=== PATIENT | male | born 1975 | race Caucasian/White ===

== ENCOUNTER 2018-07-02 18:30 | Emergency (ER) | payer BC ==
[~2018-07-02] VITALS: Ht 182.9 cm; Wt 126.1 kg
[~2018-07-02 18:30] MED LIST: ASPI81EC PO; ATEN50 PO; Budeprion Sr150 MG; CEPH500 PO; CLIN300 PO; CRUTCH3 USE; CYCL10 PO; Esgic Tablet1 EACH PO; IBUHYD PO; METCAR500 PO; METO25ER PO; METO50 PO; METPRE4DP PO; PARO10 PO; SULTRISS PO
[2018-07-02 20:08] LABS: Influenza A Negative (NEGATIVE); Influenza B Negative (NEGATIVE)
[2018-07-02] MEDS ORDERED: Prednisone20 MG PO (20:16)
== END 2018-07-02 20:24 | disposition home or self-care (01) ==
LOC: ER 18:30
PROVIDERS: Physician Assistant
DX: J20.9 Acute bronchitis, unspecified (principal); Z88.1 Allergy status to other antibiotic agents; Z88.8 Allergy status to other drugs, medicaments and biological substances; F17.210 Nicotine dependence, cigarettes, uncomplicated
CPT/HCPCS: 71046; 87804; 94640; 99283-25

== ENCOUNTER 2019-02-18 19:17 | Emergency (ER) | payer BC ==
[~2019-02-18] VITALS: Ht 182.9 cm; Wt 125.2 kg
[~2019-02-18 19:17] MED LIST changes: +Prednisone20 MG PO
[2019-02-18] MEDS ORDERED: Prednisone20 MG PO (20:19)
== END 2019-02-18 20:27 | disposition home or self-care (01) ==
LOC: ER 19:17
DX: J40 Bronchitis, not specified as acute or chronic (principal); F17.210 Nicotine dependence, cigarettes, uncomplicated; Z88.8 Allergy status to other drugs, medicaments and biological substances; Z88.1 Allergy status to other antibiotic agents
CPT/HCPCS: 94640; 99283-25; J7512

== ENCOUNTER 2019-06-21 20:27 | Emergency (ER) | payer BC ==
[~2019-06-21] VITALS: Ht 182.9 cm; Wt 123.8 kg
[2019-06-22] MEDS ORDERED: ALBU90OI INH (00:04)
[2019-06-22] MEDS ORDERED: Prednisone20 MG PO (00:04)
== END 2019-06-22 00:30 | disposition home or self-care (01) ==
LOC: ER 20:27
DX: J40 Bronchitis, not specified as acute or chronic (principal); F17.210 Nicotine dependence, cigarettes, uncomplicated; I48.91 Unspecified atrial fibrillation
CPT/HCPCS: 71046; 99283-25; J7512

== ENCOUNTER 2022-08-23 20:15 | Emergency (ER) | payer OTHER ==
[~2022-08-23] VITALS: Ht 182.9 cm; Wt 129.3 kg
[~2022-08-23 20:15] MED LIST changes: +ALBU90OI INH
[2022-08-23 21:16] LABS: BASOPHILS ABSOLUTE AUTO 0.07 K/mm3 (0.00-0.23); BASOPHILS PERCENT AUTO 1 % (0-2); EOSINOPHILS ABSOLUTE AUTO 0.14 K/mm3 (0.00-0.68); EOSINOPHILS PERCENT AUTO 1 % (0-6); Hematocrit 42.6 % (37.0-53.0); Hemoglobin 14.7 g/dL (13.5-17.5); IMMATURE GRAN ABSOLUTE AUTO 0.02 K/mm3 (0.00-0.10); IMMATURE GRAN PERCENT AUTO 0 % (0-1); LYMPHOCYTES ABSOLUTE AUTO 3.34 K/mm3 (0.84-5.20); LYMPHOCYTES PERCENT AUTO 34 % (21-46); MONOCYTES ABSOLUTE AUTO 0.51 K/mm3 (0.16-1.47); MONOCYTES PERCENT AUTO 5 % (4-13); Mean Corpuscular HGB 29.5 pg (26.0-34.0); Mean Corpuscular HGB Conc 34.5 g/dL (31.5-36.5); Mean Corpuscular Volume 85 fL (80-100); Mean Platelet Volume 8.2 fL (9.1-12.4); NEUTROPHILS ABSOLUTE AUTO 5.86 K/mm3 (1.96-9.15); NEUTROPHILS PERCENT AUTO 59 % (41-73); Platelet Count 340 K/mm3 (150-400); RDW Coefficient Variation 11.9 % (11.7-14.2); RDW Standard Deviation 37.3 fL (35.1-46.3); Red Blood Cell Count 4.99 M/mm3 (4.30-5.90); White Blood Cell Count 9.94 K/mm3 (4.00-11.30)
[2022-08-23 21:40] LABS: Influenza A, PCR NEGATIVE (NEGATIVE); Influenza B, PCR NEGATIVE (NEGATIVE); Resp Syncytial Virus, PCR NEGATIVE (NEGATIVE); SARS-Cov-2 (COVID-19) PCR, MMC NEGATIVE (NEGATIVE)
[2022-08-23 21:40] LABS: Albumin, Blood 3.8 g/dL (3.4-5.0); Albumin/Globulin Ratio 1.1 (0.8-1.8); Bilirubin, Total 0.8 mg/dL (0.1-1.0); Bun/Creatinine Ratio 8.3 (12.0-20.0); Calcium, Blood 8.8 mg/dL (8.5-10.1); Creatinine, Blood 1.2 mg/dL (0.60-1.20); Globulin, Blood 3.5 g/dL (2.2-4.0); Potassium, Blood 3.1 mmol/L (3.5-5.5); Total Protein, Blood 7.3 g/dL (6.4-8.2)
[2022-08-23 23:00] VITALS: BP 129/89
== END 2022-08-23 23:16 | disposition home or self-care (01) ==
LOC: ER 20:15
PROVIDERS: Student in an Organized Health Care Education/Training Program
DX: R05.9 Cough, unspecified (principal); Z20.822 Contact with and (suspected) exposure to COVID-19; Z88.8 Allergy status to other drugs, medicaments and biological substances; Z88.1 Allergy status to other antibiotic agents; I48.0 Paroxysmal atrial fibrillation; F43.10 Post-traumatic stress disorder, unspecified; F17.290 Nicotine dependence, other tobacco product, uncomplicated
CPT/HCPCS: 0241U; 71046; 80053; 85025; 93005; 93010; 99284-25; A9270